=== PATIENT | female | born 1980 | race Caucasian/White ===

== ENCOUNTER 2017-01-08 21:48 | Emergency (ER) | payer OTHER ==
[2017-05-02] MEDS ORDERED: MIRALAX17 GM PO (08:14)
== END 2017-01-08 23:18 | disposition left against medical advice (07) ==
LOC: ER1 21:48
DX: Z53.21 Procedure and treatment not carried out due to patient leaving prior to being seen by health care provider (principal)
CPT/HCPCS: 93005

== ENCOUNTER → 2017-01-28 | Outpatient (CLI) | payer OTHER ==
[~2017-01-28] MED LIST: DOSS PO; FLEXERIL 10 MG10 MG PO; MIRALAX17 GM PO; OXYCODONE HCL5 MG PO; PERCOCET 5-3251 EACH PO; ROXICODONE5 MG PO; ZOFRAN4 MG PO
== END ==
LOC: KOH-I 08:00
DX: S46.011A Strain of muscle(s) and tendon(s) of the rotator cuff of right shoulder, initial encounter (principal); R60.0 Localized edema
CPT/HCPCS: 73221

== ENCOUNTER 2017-02-07 08:30 | Day surgery (SDC) | payer OTHER ==
[~2017-02-07] VITALS: Ht 160 cm; Wt 68.0 kg
[2017-02-07] MEDS ORDERED: OXYCODONE HCL5 MG PO (09:08)
[2017-02-07] MEDS ORDERED: FLEXERIL 10 MG10 MG PO (09:09)
[2017-02-07 09:19] LABS: BUN/CREATININE RATIO 20 (0-10)
[2017-02-07] MEDS ORDERED: PERCOCET 5-3251 EACH PO (13:07)
[2017-02-07] MEDS ORDERED: DOSS PO (13:08)
[2017-02-07] MEDS ORDERED: ZOFRAN4 MG PO (13:09)
[2017-02-07] MEDS ORDERED: ROXICODONE5 MG PO (15:08)
[2017-05-02] MEDS ORDERED: MIRALAX17 GM PO (08:14)
== END 2017-02-07 19:20 | disposition home or self-care (01) ==
LOC: OR 08:30 → M/S 16:38 → OR 16:43 → M/S 16:43 → OR 19:20
PROVIDERS: Orthopaedic Surgery
PROC: 0PB94ZZ Excision of Right Clavicle, Percutaneous Endoscopic Approach (ICD-10-PCS; principal; 2017-02-07 10:30)
DX: S43.431A Superior glenoid labrum lesion of right shoulder, initial encounter (principal); M19.011 Primary osteoarthritis, right shoulder; M75.51 Bursitis of right shoulder; G43.909 Migraine, unspecified, not intractable, without status migrainosus; F41.9 Anxiety disorder, unspecified; F17.210 Nicotine dependence, cigarettes, uncomplicated; F32.9 Major depressive disorder, single episode, unspecified; Z87.19 Personal history of other diseases of the digestive system; Z90.49 Acquired absence of other specified parts of digestive tract; Z79.891 Long term (current) use of opiate analgesic; Z79.899 Other long term (current) drug therapy
CPT/HCPCS: 0; 36415; 73030; 80048; 84703; J0690; J2250; J2370; J2710; J2795; J3010; J7120